=== PATIENT | male | born 1975 ===

== ENCOUNTER 2018-07-13 14:01 | Emergency (ER) | payer OTHER ==
[2018-07-13 14:10] VITALS: BP 131/88; PULSE 93; RESP 18; TEMP 99.5; O2SAT 97
[2018-07-13] MEDS ORDERED: Bacitracin 500 Units/gm Oint Foilpak UD TOP ONE (14:37)
[2018-07-13] MEDS ORDERED: Tdap Vaccine 0.5 ml Vial (10-64 yrs) IM ONE ×2 (14:37→14:44)
--- NOTE | 2018-07-13 14:37 | C.PDOC ---
History Of Present Illness 42 y/o ma;e presents with right elbow pian s/p fall in shower last wednesday. c/o pain to back of elbow. last tdap unk. Time Seen by Provider: 07/13/18 14:18 Chief Complaint (Nursing): Upper Extremity Problem/Injury History Per: Patient History/Exam Limitations: no limitations Onset/Duration Of Symptoms: Days (5) Current Symptoms Are (Timing): Still Present Quality: "Pain" Severity: Mild Past Medical History Reviewed: Historical Data, Nursing Documentation, Vital Signs Vital Signs: Last Vital Signs Temp 99.5 F 07/13/18 14:06 Pulse 93 H 07/13/18 14:06 Resp 18 07/13/18 14:06 BP 131/88 07/13/18 14:06 Pulse Ox 97 07/13/18 14:06 - Medical History PMH: No Chronic Diseases Family History: States: Unknown Family Hx - Social History Hx Alcohol Use: No Hx Substance Use: No - Immunization History Hx Tetanus Toxoid Vaccination: No Hx Influenza Vaccination: No Hx Pneumococcal Vaccination: No Review Of Systems Constitutional: Negative for: Fever, Chills Musculoskeletal: Positive for: Other (right elbow pain). Negative for: Neck Pain, Shoulder Pain Skin: Positive for: Other (laceration from 5 days ago to elbow). Negative for: Rash Neurological: Negative for: Weakness, Numbness Physical Exam - Physical Exam Appears: Non-toxic, Toxic Skin: Warm, Dry, Other (healing laceration to right elbow approx 0.5 cm with small 3 mm piece of extruding tissue. no redness, warmth or discharge. ) Extremity: Other (right elbow with healing laceration (see skin), from, able to supinate and pronate, mild tenderness and swelling to posterior elbow/olecranon area. ) Extremity: Left: Atraumatic, Right: Bony Point Tenderness (elbow), Bilateral: Normal Color And Temperature Pulses: Right Radial: Normal Neurological/Psych: Oriented x3, Normal Speech, Normal Cognition, Normal Motor, Normal Sensation ED Course And Treatment O2 Sat by Pulse Oximetry: 97 - Other Rad elbow right X-Ray: Viewed By Me (A fracture through bony spur 11 are process is identified suggestive of probable triceps insertion with minimal proximal distraction. Clinically correlate further. Overlying soft tissue edema is also identified. Degenerative changes appear relatively advanced for the patient's age at the humeral ulnar joint.), Read By Radiologist Interpretation: FINDINGS: BONES: There is a probable fracture of ossified insertion of the triceps tendon with minimal proximal distraction. Overlying soft tissue edema is prominent. Retained radiodense foreign body is difficult to exclude medial to the medial epicondyle the distal right humerus. JOINTS: No subluxation or dislocation degenerative osteophytes are identified at the humeral ulnar joint compatible degenerative joint disease. SOFT TISSUES: Normal. JOINT EFFUSION: None. OTHER FINDINGS: None. IMPRESSION: A fracture through bony spur 11 are process is identified suggestive of probable triceps insertion with minimal proximal distraction. Clinically correlate further. Overlying soft tissue edema is also identified. Degenerative changes appear relatively advanced for the patient's age at the humeral ulnar joint. Medical Decision Making Medical Decision Making: injury to elbow 5 days ago- wound care, xray, analgesics. Disposition Counseled Patient/Family Regarding: Studies Performed, Diagnosis, Need For Followup, Rx Given - Disposition Referrals: Renetta Argueta MD [Staff Provider] - Disposition: HOME/ ROUTINE Disposition Time: 17:06 Condition: GOOD Additional Instructions: Compresas fras en el codo derecho varias veces al da. Seguir con el Dr. Argueta. Tylenol o Motrin para el dolor. Cold compresses to right elbow several times a day. Follow up with Dr Argueta. Tylenol or Motrin for pain. Instructions: Elbow Fracture (DC) Forms: Gen Discharge Inst Togolese, [facility] (Togolese) Print Language: GUAMANIAN - Clinical Impression Clinical Impression: Elbow fracture, right
[2018-07-13] MEDS ORDERED: Bacitracin 500 Units/gm Oint Foilpak UD ONE (14:44)
--- NOTE | 2018-07-13 16:53 | RAD ---
Date of service: 07/13/2018 PROCEDURE: Radiographs of the right elbow. HISTORY: fall, pain to olecrenon COMPARISON: No prior. FINDINGS: BONES: There is a probable fracture of ossified insertion of the triceps tendon with minimal proximal distraction. Overlying soft tissue edema is prominent. Retained radiodense foreign body is difficult to exclude medial to the medial epicondyle the distal right humerus. JOINTS: No subluxation or dislocation degenerative osteophytes are identified at the humeral ulnar joint compatible degenerative joint disease. SOFT TISSUES: Normal. JOINT EFFUSION: None. OTHER FINDINGS: None. IMPRESSION: A fracture through bony spur 11 are process is identified suggestive of probable triceps insertion with minimal proximal distraction. Clinically correlate further. Overlying soft tissue edema is also identified. Degenerative changes appear relatively advanced for the patient's age at the humeral ulnar joint.
== END 2018-07-13 17:49 | disposition home or self-care (01) ==
LOC: C.ER 14:01
DX: S42.401A Unspecified fracture of lower end of right humerus, initial encounter for closed fracture (principal); W18.30XA Fall on same level, unspecified, initial encounter; Y92.002 Bathroom of unspecified non-institutional (private) residence as the place of occurrence of the external cause; Z23 Encounter for immunization